=== PATIENT | male | born 1965 | race African-American/Black ===

== ENCOUNTER 2020-10-12 07:20 | Emergency (ER) | payer MEDICAID, OTHER ==
[~2020-10-12] VITALS: Ht 177.8 cm; Wt 90.0 kg
[~2020-10-12 07:20] MED LIST: CIPR-263 PO
[2020-10-12] MEDS ORDERED: AMLO5TAB88 PO (07:30)
[2020-10-12] MEDS ORDERED: METO-396 PO (07:33)
[2020-10-12] MEDS ORDERED: RAMI10CA68 PO (07:33)
[2020-10-12] MEDS ORDERED: AMLO10TA80 PO (07:33)
[2020-10-12] MEDS ORDERED: ASPI-867 PO (07:33)
[2020-10-12] MEDS ORDERED: FLUT16SP15 (07:33)
[2020-10-12] MEDS ORDERED: ONDANSETRON HCL 4MG/2ML INJ IV STA (07:45)
[2020-10-12] MEDS ORDERED: MORPHINE SULFATE 4 MG/ML CPJ (NOT FOR IM USE) IV STA (07:45)
[2020-10-12] MEDS ORDERED: SODIUM CHLORIDE 0.9% 250 ML IV ONE (07:45)
[2020-10-12] MEDS ORDERED: HYDRALAZINE 20MG/ML VIAL IV ONE (07:45)
[2020-10-12 08:14] LABS: BASOPHILS % 0.4 % (0.0-2.0); EOSINOPHILS % 1.1 % (0.0-5.0); HEMATOCRIT. 44.2 % (42.0-52.0); HEMOGLOBIN. 14.4 g/dL (14.0-18.0); LYMPHOCYTES % 11.7 % (20.0-50.0); MEAN CORPUSCULAR HEMOGLOBIN 25.7 pg (28.0-32.0); MEAN CORPUSCULAR VOLUME 78.9 fL (80.0-94.0); MEAN PLATELET VOLUME 7.5 fl (7.4-10.4); MONOCYTES % 6.7 % (2.0-8.0); NEUTROPHILS % 80.1 % (40.0-76.0); PLATELET 404 x1000/uL (130-400); RED CELL DISTRIBUTION WIDTH 17.6 % (11.6-14.6)
[2020-10-12 08:21] LABS: CHLORIDE 106 mEq/L (98-107)
[2020-10-12 08:24] LABS: PROTHROMBIN TIME 10.8 sec (9.6-11.0)
[2020-10-12 11:30] VITALS: BP 180/100
[2020-10-12] MEDS ORDERED: TRAM50TA3 MT (12:26)
[2020-10-12] MEDS ORDERED: IBUP-2028 MT (12:26)
[2020-10-12] MEDS ORDERED: ACETAMINOPHEN 325MG TABLET PO ONE (12:45)
[2020-10-12] MEDS ORDERED: IOHEXOL-350 100 ML BOTTLE ONE (16:00)
== END 2020-10-12 13:09 | disposition home or self-care (01) ==
LOC: ER 07:20
DX: R51.9 Headache, unspecified (principal); I10 Essential (primary) hypertension; F17.210 Nicotine dependence, cigarettes, uncomplicated; Z71.6 Tobacco abuse counseling; Z79.82 Long term (current) use of aspirin
CPT/HCPCS: 36415; 70496; 80053; 84484; 85025; 85610; 85651; 93005; 96374; 96375; 99285; 99406; J0360; J2270; J2405; J7030; Q9967

== ENCOUNTER 2021-04-08 08:21 | Emergency (ER) | payer MEDICAID, OTHER ==
[~2021-04-08] VITALS: Ht 182.9 cm; Wt 90.0 kg
[~2021-04-08 08:21] MED LIST changes: +AMLO10TA80 PO; +AMLO5TAB88 PO; +ASPI-867 PO; +FLUT16SP15; +IBUP-2028 MT; +METO-396 PO; +RAMI10CA68 PO; +TRAM50TA3 MT
[2021-04-08] MEDS ORDERED: KETOROLAC 60MG/2ML VIAL IM ONE (09:00)
[2021-04-08] MEDS ORDERED: ACETAMINOPHEN 325MG TABLET PO ONE (09:00)
[2021-04-08] MEDS ORDERED: IBUP-2029 MT (10:25)
[2021-04-08 11:34] VITALS: BP 151/95
== END 2021-04-08 11:35 | disposition home or self-care (01) ==
LOC: ER 08:21
DX: J06.9 Acute upper respiratory infection, unspecified (principal); B34.9 Viral infection, unspecified; I10 Essential (primary) hypertension; Z79.82 Long term (current) use of aspirin; Z20.822 Contact with and (suspected) exposure to COVID-19
CPT/HCPCS: 87426; 96372; 99283; J1885

== ENCOUNTER 2022-04-04 11:28 | Emergency (ER) | payer MEDICAID, OTHER ==
[~2022-04-04] VITALS: Ht 177.8 cm; Wt 91.0 kg
[~2022-04-04 11:28] MED LIST changes: +IBUP-2029 MT; +OXYM30SP26 BOTHNSTRLS
[2022-04-04 12:21] VITALS: BP 188/126
[2022-04-04 14:03] LABS: CLARITY URINE CLEAR (CLEAR); COLOR URINE YELLOW (YELLOW); KETONES URINE NEGATIVE (NEGATIVE); LEUKOCYTE ESTERASE URINE NEGATIVE (NEGATIVE); NITRITE URINE NEGATIVE (NEGATIVE); OCCULT BLOOD URINE 2+ (NEGATIVE); PROTEIN URINE 4+ (NEGATIVE); SPECIFIC GRAVITY URINE 1.026 (1.005-1.030); UROBILINOGEN URINE 0.2 E.U./dL (0.2-1.0)
[2022-04-04 14:34] LABS: *AMPHETAMINES SCREEN URINE NEGATIVE (NEGATIVE); *BARBITURATES SCREEN URINE NEGATIVE (NEGATIVE); *BENZODIAZEPINES SCREEN URINE NEGATIVE (NEGATIVE); *COCAINE SCREEN URINE NEGATIVE (NEGATIVE); CANNABINOID URINE SCREEN PRESUMTIVE POSITIVE (NEGATIVE); METHADONE URINE SCREEN NEGATIVE (NEGATIVE); OPIATES URINE SCREEN NEGATIVE (NEGATIVE); PHENCYCLIDINE URINE SCREEN NEGATIVE (NEGATIVE)
[2022-04-04 15:06] LABS: BASOPHILS % 0.5 % (0.0-2.0); EOSINOPHILS % 5.4 % (0.0-5.0); HEMATOCRIT. 39.1 % (42.0-52.0); HEMOGLOBIN. 12.9 g/dL (14.0-18.0); LYMPHOCYTES % 17.8 % (20.0-50.0); MEAN CORPUSCULAR HEMOGLOBIN 25.8 pg (28.0-32.0); MEAN CORPUSCULAR VOLUME 78.1 fL (80.0-94.0); MEAN PLATELET VOLUME 7.3 fl (7.4-10.4); MONOCYTES % 9.2 % (2.0-8.0); NEUTROPHILS % 67.1 % (40.0-76.0); PLATELET 386 x1000/uL (130-400); RED CELL DISTRIBUTION WIDTH 17.1 % (11.6-14.6)
[2022-04-04 15:10] LABS: CHLORIDE 111 mEq/L (98-107)
[2022-04-04 15:19] LABS: ETHANOL BLOOD < 10 mg/dL
== END 2022-04-04 17:00 | disposition home or self-care (01) ==
LOC: ER 11:28
DX: R10.9 Unspecified abdominal pain (principal); I10 Essential (primary) hypertension; N40.0 Benign prostatic hyperplasia without lower urinary tract symptoms; F17.210 Nicotine dependence, cigarettes, uncomplicated; Z79.82 Long term (current) use of aspirin
CPT/HCPCS: 36415; 71045; 74176; 80053; 80305; 80320; 81003; 83880; 84484; 85025; 93005; 99285; G0480

== ENCOUNTER 2022-07-02 10:18 | Emergency (ER) | payer OTHER ==
[~2022-07-02] VITALS: Ht 177.8 cm; Wt 95.0 kg
[2022-07-02 11:04] LABS: BASOPHILS % 0.5 % (0.0-2.0); CHLORIDE 108 mEq/L (98-107); EOSINOPHILS % 2.2 % (0.0-5.0); HEMATOCRIT. 36.4 % (42.0-52.0); HEMOGLOBIN. 12.2 g/dL (14.0-18.0); LYMPHOCYTES % 12.1 % (20.0-50.0); MEAN CORPUSCULAR HEMOGLOBIN 25.8 pg (28.0-32.0); MEAN CORPUSCULAR VOLUME 76.9 fL (80.0-94.0); MEAN PLATELET VOLUME 7.1 fl (7.4-10.4); MONOCYTES % 9.2 % (2.0-8.0); PLATELET 383 x1000/uL (130-400); RED BLOOD CELL COUNT 4.74 mill/uL (4.7-6.1); RED CELL DISTRIBUTION WIDTH 17.8 % (11.6-14.6)
[2022-07-02 11:39] LABS: CLARITY URINE CLEAR (CLEAR); COLOR URINE YELLOW (YELLOW); KETONES URINE TRACE (NEGATIVE); LEUKOCYTE ESTERASE URINE NEGATIVE (NEGATIVE); NITRITE URINE NEGATIVE (NEGATIVE); OCCULT BLOOD URINE 2+ (NEGATIVE); PH URINE 5.5 (4.5-8.0); PROTEIN URINE 4+ (NEGATIVE); SPECIFIC GRAVITY URINE 1.024 (1.005-1.030); UROBILINOGEN URINE 0.2 E.U./dL (0.2-1.0)
[2022-07-02 12:32] VITALS: BP 186/119
== END 2022-07-02 13:17 | disposition home or self-care (01) ==
LOC: ER 10:18
DX: M79.89 Other specified soft tissue disorders (principal); I10 Essential (primary) hypertension; Z79.82 Long term (current) use of aspirin
CPT/HCPCS: 36415; 80053; 81003; 85025; 93005; 99284; Z7610

== ENCOUNTER 2023-11-19 18:56 | Inpatient (IN) | payer OTHER ==
[~2023-11-19] VITALS: Ht 177.8 cm; Wt 94.3 kg
[~2023-11-19 18:56] MED LIST changes: -AMLO10TA80 PO; -AMLO5TAB88 PO; -ASPI-867 PO; -CIPR-263 PO; +FERR-63 PO; -FLUT16SP15; +HYDR100T11 PO; -IBUP-2028 MT; -IBUP-2029 MT; +ISOS120T13 MT; -METO-396 PO; +METO-411 MT; +MINO10TA MT; -OXYM30SP26 BOTHNSTRLS; -RAMI10CA68 PO; -TRAM50TA3 MT
[2023-11-19 20:44] LABS: HEMATOCRIT. 30.6 % (42.0-52.0); HEMOGLOBIN. 9.9 g/dL (14.0-18.0); MEAN CORPUSCULAR HEMOGLOBIN 26.9 pg (28.0-32.0); MEAN CORPUSCULAR HGB CONC 32.3 g/dL (31.0-37.0); MEAN CORPUSCULAR VOLUME 83.2 fL (80.0-94.0); MEAN PLATELET VOLUME 6.5 fl (7.4-10.4); PLATELET 287 x1000/uL (130-400); RED BLOOD CELL COUNT 3.67 mill/uL (4.7-6.1); RED CELL DISTRIBUTION WIDTH 19.8 % (11.6-14.6); WHITE BLOOD COUNT 6.5 x1000/uL (4.5-11.0)
[2023-11-19 20:49] LABS: DIFFERENTIAL COMMENT 1
[2023-11-19 20:50] LABS: CHLORIDE 104 mEq/L (98-107); POTASSIUM 4.4 mEq/L (3.5-5.1); SODIUM 139 mEq/L (136-145)
[2023-11-19 20:51] LABS: CALCIUM 9.1 mg/dL (8.7-10.4); CARBON DIOXIDE 25 mEq/L (21-32)
[2023-11-19 20:56] LABS: GLUCOSE 96 mg/dL (70-105); UREA NITROGEN BLOOD 56 mg/dL (9-23)
[2023-11-19 21:03] LABS: CREATININE 10.7 mg/dL (0.6-1.3)
[2023-11-19 21:04] LABS: TROPONIN I HIGH SENSITIVITY 101 ng/L (3.0-53)
[2023-11-19 21:17] LABS: PLATELET ESTIMATE NORMAL
[2023-11-19 21:18] LABS: ANISOCYTOSIS 1+
[2023-11-19] MEDS: CLONIDINE 0.2MG TABLET PO ONE (23:22)
[2023-11-19] MEDS: ONDANSETRON HCL 4MG/2ML INJ IV NR (23:35)
[2023-11-20 04:16] VITALS: BP 159/99; PULSE 110; RESP 18; TEMP 35.584
[2023-11-20 08:00] VITALS: BP 196/115; PULSE 109; RESP 20; TEMP 37.05852; O2SAT 97
[2023-11-20] MEDS ORDERED: ACETAMINOPHEN 325MG TABLET PO PRN (08:30)
[2023-11-20] MEDS ORDERED: IPRATROPIUM/ALBUTEROL 0.5-3(2.5)MG/3ML NEB HHN PRN (08:30)
[2023-11-20] MEDS ORDERED: GUAIFENESIN 200MG/10ML SUGAR FREE UDC PO PRN (08:30)
[2023-11-20] MEDS ORDERED: MAGNESIUM/ALUMINUM HYDROXIDE/SIMETHICONE 30ML UDC PO PRN (08:30)
[2023-11-20] MEDS ORDERED: DOCUSATE SODIUM 100MG CAPSULE PO PRN (08:30)
[2023-11-20] MEDS: CLONIDINE 0.1MG TABLET PO PRN (08:59)
[2023-11-20] MEDS: ENOXAPARIN 30MG/0.3ML SYR SUBCUT SCH (09:00)
[2023-11-20] MEDS: ACETAMINOPHEN 325MG TABLET PO PRN (09:01)
[2023-11-20 12:00] VITALS: BP 187/98; PULSE 97; RESP 20; TEMP 37.11408; O2SAT 98
[2023-11-20 13:19] LABS: HEPATITIS B SURFACE ANTIGEN NEGATIVE (Negative)
[2023-11-20 13:40] LABS: HEPATITIS A AB IGM NEGATIVE (Negative)
[2023-11-20 13:41] LABS: HEPATITIS B CORE AB IGM NEGATIVE (Negative); HEPATITIS C AB NON REACTIVE (Neg) (Negative)
[2023-11-20] MEDS: METOPROLOL SUCCINATE 50MG ER TABLET PO SCH (15:32)
[2023-11-20] MEDS: ISOSORBIDE MONONITRATE 60MG TABLET SR 24HR PO SCH (15:32)
[2023-11-20] MEDS: MINOXIDIL 10MG TABLET PO SCH (15:33)
[2023-11-20] MEDS: HYDRALAZINE HCL 100MG TABLET PO SCH (15:33)
[2023-11-20 16:00] VITALS: BP 182/119; PULSE 91; RESP 20; TEMP 37.11408; O2SAT 98
[2023-11-20] MEDS: FERROUS SULFATE 325MG TABLET PO SCH (17:20)
[2023-11-20 20:00] VITALS: BP 151/87; PULSE 63; RESP 20; TEMP 36.55848; O2SAT 100
[2023-11-20] MEDS: ONDANSETRON HCL 4MG/2ML INJ IV PRN (21:05)
[2023-11-20] MEDS: ATORVASTATIN CALCIUM 40MG TABLET PO SCH (21:05)
[2023-11-20 22:34] LABS: TROPONIN I HIGH SENSITIVITY 79 ng/L (3.0-53)
[2023-11-21] VITALS (9 sets, daily range): BP systolic 122–153; BP diastolic 81–98; PULSE 75–110; RESP 17–20; TEMP 36.3918–36.9474; O2SAT 97–100
[2023-11-21] MEDS: ASPIRIN 81MG TABLET PO SCH (08:52)
[2023-11-21] MEDS: ENOXAPARIN 30MG/0.3ML SYR SUBCUT SCH (08:53)
[2023-11-21] MEDS ORDERED: MEDICATION NOT ON FORMULARY EA (Metoprolol Succinate 1 TAB) MT SCH (09:00)
[2023-11-21] MEDS ORDERED: MEDICATION NOT ON FORMULARY EA (Isosorbide Mononitrate 1 TAB) MT SCH (09:00)
[2023-11-21] MEDS: DIPHENHYDRAMINE 25MG CAPSULE PO NR (15:03)
[2023-11-22] VITALS: BP 154/98; PULSE 107; RESP 20; TEMP 37.16964; O2SAT 98
[2023-11-22 04:00] VITALS: BP 144/85; PULSE 96; RESP 18; TEMP 36.78072; O2SAT 97
[2023-11-22 08:00] VITALS: BP 150/85; PULSE 111; RESP 19; TEMP 35.94732; O2SAT 95
[2023-11-22 12:00] VITALS: BP 132/72; PULSE 104; RESP 19; TEMP 35.94732; O2SAT 96
[2023-11-22] MEDS ORDERED: BARIUM SULFATE 176 GM SUSP.RECON ONE (12:05)
[2023-11-22] MEDS ORDERED: EZ-HD SUSPENSION(BARIUM SULFATE 340GM) PO ONE (12:05)
[2023-11-22] MEDS ORDERED: SIMETHICONE/SOD BICARB/CIT AC 1 EACH GRAN.EF.PK ONE (12:06)
[2023-11-22 20:00] VITALS: BP 147/85; PULSE 108; RESP 19; TEMP 37.05852; O2SAT 98
[2023-11-23] VITALS (14 sets, daily range): BP systolic 124–187; BP diastolic 59–112; PULSE 65–112; RESP 16–20; TEMP 36.114–36.6696; O2SAT 97–100
[2023-11-23 07:53] LABS: BASOPHILS % 0.4 % (0.0-2.0); HEMATOCRIT. 29.8 % (42.0-52.0); HEMOGLOBIN. 9.6 g/dL (14.0-18.0); LYMPHOCYTES % 8.8 % (20.0-50.0); MEAN CORPUSCULAR HEMOGLOBIN 26.3 pg (28.0-32.0); MEAN CORPUSCULAR HGB CONC 32.1 g/dL (31.0-37.0); MEAN PLATELET VOLUME 7.6 fl (7.4-10.4); MONOCYTES % 12.6 % (2.0-8.0); NEUTROPHILS % 76.2 % (40.0-76.0); PLATELET 310 x1000/uL (130-400); RED BLOOD CELL COUNT 3.63 mill/uL (4.7-6.1); RED CELL DISTRIBUTION WIDTH 19.5 % (11.6-14.6); WHITE BLOOD COUNT 6.4 x1000/uL (4.5-11.0)
[2023-11-23 08:08] LABS: POTASSIUM 4.3 mEq/L (3.5-5.1)
[2023-11-23 08:09] LABS: CALCIUM 9.3 mg/dL (8.7-10.4)
[2023-11-23 08:20] LABS: CREATININE 12.9 mg/dL (0.6-1.3)
[2023-11-23] MEDS ORDERED: LIP40 PO (14:45)
[2023-11-23] MEDS: DOXAZOSIN MESYLATE 4MG TABLET PO SCH (21:00)
[2023-11-24] VITALS: BP 134/69; PULSE 85; RESP 20; TEMP 36.89184; O2SAT 98
[2023-11-24 04:00] VITALS: BP 143/87; PULSE 100; RESP 19; TEMP 36.55848; O2SAT 100
[2023-11-24 08:00] VITALS: BP 154/94; PULSE 104; RESP 20; TEMP 36.78072; O2SAT 100
[2023-11-24 12:20] VITALS: BP 140/90; PULSE 99; TEMP 98.1; O2SAT 100
== END 2023-11-24 14:00 | disposition home or self-care (01) | DRG 190 ==
LOC: ER 18:56 → 5WST 11-20 01:10 → 6EST 11-20 02:35
PROVIDERS: ADMIT Internal Medicine; ATTEND Internal Medicine
PROC: 5A1D70Z Performance of Urinary Filtration, Intermittent, Less than 6 Hours Per Day (ICD-10-PCS; principal; 2023-11-21)
PROC: 5A1D70Z Performance of Urinary Filtration, Intermittent, Less than 6 Hours Per Day (ICD-10-PCS; 2023-11-23)
DX: I21.4 Non-ST elevation (NSTEMI) myocardial infarction (principal); I50.33 Acute on chronic diastolic (congestive) heart failure; K22.0 Achalasia of cardia; N18.6 End stage renal disease; D63.8 Anemia in other chronic diseases classified elsewhere; I13.2 Hypertensive heart and chronic kidney disease with heart failure and with stage 5 chronic kidney disease, or end stage renal disease; I16.0 Hypertensive urgency; K92.1 Melena; R13.10 Dysphagia, unspecified; D64.9 Anemia, unspecified; F17.210 Nicotine dependence, cigarettes, uncomplicated; Z91.148 Patient's other noncompliance with medication regimen for other reason; Z79.82 Long term (current) use of aspirin; Z99.2 Dependence on renal dialysis
CPT/HCPCS: 36415; 71045; 74220; 80048; 82270; 83880; 84484; 85025; 86705; 86709; 87340; 90935; 92610; 93005; 99291; J1650; J2405; J7517; Q0163

== ENCOUNTER 2023-11-30 05:33 | Emergency (ER) | payer MEDICAID, OTHER ==
[~2023-11-30] VITALS: Ht 177.8 cm; Wt 90.0 kg
[~2023-11-30 05:33] MED LIST changes: +LIP40 PO
[2023-11-30 05:36] VITALS: O2SAT 95
[2023-11-30] MEDS: ASPIRIN 81MG TABLET PO ONE (07:01)
[2023-11-30] MEDS: SODIUM CHLORIDE 0.9% 1,000 ML IV ONE (07:02)
[2023-11-30 07:12] LABS: BASOPHILS % 0.6 % (0.0-2.0); EOSINOPHILS % 3.2 % (0.0-5.0); HEMATOCRIT. 24.1 % (42.0-52.0); HEMOGLOBIN. 7.8 g/dL (14.0-18.0); LYMPHOCYTES % 10.3 % (20.0-50.0); MEAN CORPUSCULAR HEMOGLOBIN 26.5 pg (28.0-32.0); MEAN CORPUSCULAR HGB CONC 32.3 g/dL (31.0-37.0); MEAN CORPUSCULAR VOLUME 82.2 fL (80.0-94.0); MEAN PLATELET VOLUME 7.4 fl (7.4-10.4); MONOCYTES % 10.9 % (2.0-8.0); PLATELET 302 x1000/uL (130-400); RED BLOOD CELL COUNT 2.93 mill/uL (4.7-6.1); RED CELL DISTRIBUTION WIDTH 18.7 % (11.6-14.6); WHITE BLOOD COUNT 5.9 x1000/uL (4.5-11.0)
[2023-11-30 07:27] LABS: CHLORIDE 103 mEq/L (98-107); POTASSIUM 4.4 mEq/L (3.5-5.1); SODIUM 138 mEq/L (136-145)
[2023-11-30 07:28] LABS: CALCIUM 8.4 mg/dL (8.7-10.4); CARBON DIOXIDE 25 mEq/L (21-32)
[2023-11-30 07:30] LABS: PROTHROMBIN TIME 10.9 sec (9.6-11.0)
[2023-11-30 07:33] LABS: GLUCOSE 100 mg/dL (70-105); UREA NITROGEN BLOOD 58 mg/dL (9-23)
[2023-11-30 07:35] LABS: TROPONIN I HIGH SENSITIVITY 38 ng/L (3.0-53)
[2023-11-30 07:54] LABS: CREATININE 9.7 mg/dL (0.6-1.3)
[2023-11-30 07:55] LABS: ETHANOL BLOOD < 10 mg/dL (<10)
[2023-11-30 09:35] LABS: HEPATITIS B SURFACE ANTIGEN NEGATIVE (Negative)
[2023-11-30 09:50] LABS: TROPONIN I HIGH SENSITIVITY 37 ng/L (3.0-53)
[2023-11-30 09:56] LABS: HEPATITIS A AB IGM NEGATIVE (Negative); HEPATITIS B CORE AB IGM NEGATIVE (Negative)
[2023-11-30 09:57] LABS: HEPATITIS C AB NON REACTIVE (Neg) (Negative)
[2023-11-30 10:16] VITALS: BP 130/82; PULSE 98; RESP 16; TEMP 36.55848; O2SAT 97
== END 2023-11-30 10:45 | disposition short-term general hospital (02) ==
LOC: ER 05:33 → EDBEDREQ 08:25 → ER 10:45
DX: R07.9 Chest pain, unspecified (principal); D64.9 Anemia, unspecified; I12.0 Hypertensive chronic kidney disease with stage 5 chronic kidney disease or end stage renal disease; Z99.2 Dependence on renal dialysis; Z98.890 Other specified postprocedural states; Z79.899 Other long term (current) drug therapy
CPT/HCPCS: 80048; 80320; 83880; 85025; 85610; 86850; 86900; 86901; 87340; 84484; 36415; 86705; 86709; 71045; 96360; 99285; Z7610; J7030; G0480

== ENCOUNTER 2024-02-21 08:48 | Emergency (ER) | payer OTHER ==
[~2024-02-21] VITALS: Ht 180.3 cm; Wt 118.0 kg
[~2024-02-21 08:48] MED LIST changes: +LEVO-65 MT; +MELA3TAB40 PO; +MONT-46 PO; +PANT40TA51 MT; +SUCR1TAB PO
[2024-02-21 09:04] VITALS: O2SAT 98
[2024-02-21] MEDS ORDERED: HYDROCODONE/ACETAMINOPHEN 5/325MG TABLET PO ONE (10:15)
[2024-02-21] MEDS ORDERED: CLONIDINE 0.1MG TABLET PO ONE (10:15)
[2024-02-21 10:16] LABS: HEMATOCRIT. 37.3 % (42.0-52.0); HEMOGLOBIN. 11.7 g/dL (14.0-18.0); MEAN CORPUSCULAR HEMOGLOBIN 26.5 pg (28.0-32.0); MEAN CORPUSCULAR HGB CONC 31.5 g/dL (31.0-37.0); MEAN CORPUSCULAR VOLUME 84.3 fL (80.0-94.0); MEAN PLATELET VOLUME 6.5 fl (7.4-10.4); PLATELET 284 x1000/uL (130-400); RED BLOOD CELL COUNT 4.42 mill/uL (4.7-6.1); RED CELL DISTRIBUTION WIDTH 22.3 % (11.6-14.6)
[2024-02-21 10:21] LABS: POTASSIUM 4.4 mEq/L (3.5-5.1)
[2024-02-21 10:23] LABS: CALCIUM 9.5 mg/dL (8.7-10.4)
[2024-02-21 10:41] LABS: DIFFERENTIAL COMMENT 1
[2024-02-21 11:04] LABS: ANISOCYTOSIS 3+; PLATELET ESTIMATE NORMAL
[2024-02-21] MEDS ORDERED: HYDROCODONE/ACETAMINOPHEN 5/325MG TABLET PO NR (12:15)
[2024-02-21] MEDS ORDERED: LIDO700A15 TP (12:18)
[2024-02-21] MEDS ORDERED: HYDR-4001 MT (12:18)
[2024-02-21] MEDS: HYDRALAZINE HCL 100MG TABLET PO ONE (12:39)
[2024-02-21] MEDS: HYDROCODONE/ACETAMINOPHEN 7.5/325MG TABLET PO ONE (12:39)
[2024-02-21] MEDS: CLONIDINE 0.1MG TABLET PO NR (12:47)
[2024-02-21 12:54] VITALS: BP 210/101; PULSE 101; RESP 18; TEMP 36.94740; O2SAT 100
== END 2024-02-21 13:04 | disposition home or self-care (01) ==
LOC: ER 08:48
DX: M19.012 Primary osteoarthritis, left shoulder (principal); M25.562 Pain in left knee; M25.561 Pain in right knee; I50.9 Heart failure, unspecified; N18.6 End stage renal disease; I13.2 Hypertensive heart and chronic kidney disease with heart failure and with stage 5 chronic kidney disease, or end stage renal disease; Z99.2 Dependence on renal dialysis; Z79.899 Other long term (current) drug therapy
CPT/HCPCS: 80048; 85025; 36415; 71045; 73030; 73560; 93005; 99285; Z7610

== ENCOUNTER 2024-04-19 07:10 | Emergency (ER) | payer OTHER ==
[~2024-04-19] VITALS: Ht 177.8 cm; Wt 90.0 kg
[~2024-04-19 07:10] MED LIST changes: +AMLO10TA80 PO; +ASPI-1406 PO; +CLON0.2T PO; +FOLI-43 PO; +FURO20TA4 PO; +HYDR-4001 MT; +IBUP-2029 MT; -LEVO-65 MT; -METO-411 MT; +METO100T16 MT; +OXYC30TA2 PO
[2024-04-19 07:25] VITALS: O2SAT 100
[2024-04-19 07:32] VITALS: BP 169/110; PULSE 110; RESP 18; TEMP 36.7; O2SAT 94
[2024-04-19] MEDS ORDERED: DIPH25CA83 MT (10:43)
[2024-04-19] MEDS ORDERED: ACET-2708 MT (10:43)
[2024-04-19] MEDS ORDERED: LIDO700A15 TP (10:43)
== END 2024-04-19 12:05 | disposition home or self-care (01) ==
LOC: ER 07:10
DX: S01.91XD Laceration without foreign body of unspecified part of head, subsequent encounter (principal); I10 Essential (primary) hypertension; Z79.82 Long term (current) use of aspirin; Z79.899 Other long term (current) drug therapy; X58.XXXD Exposure to other specified factors, subsequent encounter
CPT/HCPCS: 99283; Z7610 ×2; A4606